=== PATIENT | female | born 1930 | race Caucasian/White ===

== ENCOUNTER 2019-08-14 12:23 | Emergency (ER) | payer MEDICARE, BC ==
--- NOTE | 2019-08-14 13:27 | CT ---
EXAMINATION: Head wo Cont SEX: Female AGE: 89 years CLINICAL HISTORY: 89-year-old female sustained head injury associated with Syncope (hit left side of head). Scan technique: Volume acquisition of data emergency unenhanced CT scan of the head and brain obtained with patient lying supine on the Siemens multislice scanner [facility]. All data archived in the PACS system for storage, reformatting axial/sagittal/coronal planes and study i.e bone/brain windows. (Some rotational/positional artifact) Interpretation: 1. Uniformly thick bony calvarium without sign of skull fracture, underlying brain contusion or abnormal extracerebral/intracranial epidural or subdural hematoma 2. Symmetric clear pneumatization of the paranasal and mastoid sinuses. 3. 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 4. No upper cervical fracture or spondylolisthesis. Normal TMJs. 5. Generalized atrophy and scattered microvascular ischemic changes periventricular white matter of both cerebral hemispheres. No edema or mass effect on the underlying cerebral sulci. 6. No supratentorial or posterior fossa mass lesion. No hydrocephalus. Physiologic pineal and choroid plexus calcifications. 7. No sign of acute intracerebral/intraventricular/subarachnoid bleed. CONCLUSION: No sign of skull fracture or acute closed head injury. No intracranial bleed. INTERPRETATION: 1. CONCLUSION:
[2019-08-14 13:28] LABS: ANION GAP 8.7 mEq/L (7-13); CHLORIDE,CL 89 mmol/L (98-107); SODIUM,NA 129 mmol/L (136-145)
--- NOTE | 2019-08-14 13:32 | CR ---
EXAMINATION: Hip Min 3V w Pelvis Lt SEX: Female AGE: 89 years CLINICAL HISTORY: 89-year-old female injured in fall (Syncope episode, hit left side of head). Hip pain. INTERPRETATION: 1. Homogeneous good bone mineral density for age and gender. 2. *Acute FRACTURES of the superior and inferior pubic rami new since CT scan images 26 February 2018. 3. Chronic arthritic changes multiple levels lower lumbar spine. Mild reactive arthritic changes both hip joints. 4. Symmetric spacing normal-appearing SI joints. No pathologic skeletal lesion, other pelvic fracture or hip dislocation. CONCLUSION: Nondisplaced left pelvic rami fractures
--- NOTE | 2019-08-14 13:37 | CT ---
EXAMINATION: Max Facial Sinus wo Cont SEX: Female AGE: 89 years ( CLINICAL HISTORY: 89-year-old female injured in a fall (syncope episode and hit left side of head. Nondisplaced left pubic rami fractures. No sign of skull fracture or closed head injury. Scan technique: Volume acquisition of data emergency unenhanced CT scan of the facial bones obtained with patient lying supine on the Siemens multi slice scanner [place], [place]. All data archived in the PACS system for storage, reformatting axial/sagittal/coronal planes and study (bone/soft tissue windows). INTERPRETATION: 1. Symmetric satisfactory dental occlusion (filling artifacts). Normal TMJs. 2. Midline nasal septum without sign of nasal or anterior maxillary spine fracture. 3. Symmetric normal-appearing orbits. No orbital or zygomatic arch fracture. Symmetric normal optic globes. 4. Symmetric clear pneumatization of the ethmoid, maxillary and sphenoid sinuses (frontal sinuses not pneumatized). 5. No foreign bodies. No facial bone fractures. 6. Chronic arthritic changes upper cervical spine. CONCLUSION: No acute facial bone fracture.
--- NOTE | 2019-08-14 13:52 | EDM.PDOC ---
Scribed by Karon Bautista 08/14/19 1242 for Ben Siegel PA ED HPI GENERAL MEDICAL PROBLEM - General Chief Complaint: Trauma Stated Complaint: AMBULANCE Time Seen by Provider: 08/14/19 12:28 Source of Information: Reports: Patient, EMS, EMS Notes Reviewed, RN, RN Notes Reviewed History Limitations: Reports: No Limitations - History of Present Illness INITIAL COMMENTS - FREE TEXT/NARRATIVE: HPI:This 89 yo female patient was brought to the ED by [facility] after falling in her house. The patient reports this morning at about 0500 she was attempting to take her medications. The patient reports she does not remember falling, but woke up on the floor. The patient reports she did not have any loss of consciousness, but does not remember the fall. The patient reports she attempted to get up off the floor, but had pain in her left hip and pelvis. The patient reports after initially attempting to get off the floor and being in pain, she has been scooting around her home. The patient reports she had 1 episode of diarrhea after the fall. Primary Survey Airway: open and patient Breathing: regular without additional effort Circulation: no major bleeding noted Deformity: no deformity noted Expose: as appropriate GCS: 15 Secondary Survey HEENT Head: The patient has abrasions and contusions to the left side of her face/ head Eyes: PERRLA Ears: no obvious trauma, canals open Nose: no deformity, no bleeding, mucosa moist Mouth: no noted trauma Throat: no abnormalities noted Neck: Subtle, normal range of motion no cervical tenderness Chest: lung sounds were clear and equal bilaterally, Heart was RRR, no murmurs, rubs or gallop Abdomen: normoactive bowel sounds, no organomegally, no tenderness on palpation Pelvis: The patient reports pain in the left hip. Increased pain with inward pressure on the pelvis. Extremities: CMS intact Provider Trauma Notes Arrival Time: 1224 GCS on Arrival: 15 C-collar present on arrival: No GCS at 1 hour: Off spine board: NA Time primary survey: 1225 Time secondary survey: 1230 Time C-collar cleared: By: Time removed: GCS on discharge: Onset: Today Onset Date: 08/14/19 Onset Time: 05:00 Duration: Constant Location: Reports: Head (left face), Lower Extremity, Left (left hip/pelvis) Quality: Reports: Ache Severity: Moderate Improves with: Reports: Rest Worsens with: Reports: Movement Context: Reports: Trauma (ground level fall) - Related Data Allergies Allergy/AdvReac Type Severity Reaction Status Date / Time No Known Allergies Allergy Verified 08/14/19 12:43 Home Meds: Home Meds Alendronate Sodium 70 mg PO WEEKLY 08/14/19 [History] Chlorthalidone 25 mg PO DAILY 08/14/19 [History] Levothyroxine Sodium [Synthroid] 72 mg PO DAILY 08/14/19 [History] amLODIPine [Norvasc] 2.5 mg PO DAILY 08/14/19 [History] Review of Systems - Review of Systems Review Of Systems: Comprehensive ROS is negative, except as noted in HPI. ED EXAM, GENERAL - Physical Exam Exam: See Below Exam Limited By: No Limitations General Appearance: Alert, WD/WN, Moderate Distress Eye Exam: Bilateral Eye: EOMI, Normal Inspection, PERRL Ears: Normal Canal, Hearing Grossly Normal, Normal TMs, Other (small amount of dried blood below the left pinna) Nose: Normal Inspection, Normal Mucosa, No Blood Throat/Mouth: Normal Inspection, Normal Lips, Normal Teeth, Normal Gums, Normal Oropharynx, Normal Voice, No Airway Compromise Head: Atraumatic, Normocephalic Neck: Normal Inspection, Supple, Non-Tender, Full Range of Motion Respiratory/Chest: No Respiratory Distress, Lungs Clear, Normal Breath Sounds, No Accessory Muscle Use, Chest Non-Tender Cardiovascular: Normal Peripheral Pulses, Regular Rate, Rhythm, No Edema, No Gallop, No JVD, No Murmur, No Rub GI/Abdominal: Normal Bowel Sounds, Soft, Non-Tender, No Organomegaly, No Distention, No Abnormal Bruit, No Mass (Female) Exam: Deferred Rectal (Female) Exam: Deferred Back Exam: Normal Inspection, Full Range of Motion, NT Extremities: Leg Pain (Left hip and pelvis tenderness to palpation ) Neurological: Alert, Oriented, CN II-XII Intact, Normal Cognition Psychiatric: Normal Affect, Normal Mood Skin Exam: Warm, Dry, Intact, Normal Color, No Rash Lymphatic: No Adenopathy Course - Orders/Labs/Meds Orders: Active Orders 24 hr Category Date Time Status EKG Documentation Completion [RC] URGENT Care 08/14/19 12:29 Active Labs: Laboratory Tests 08/14/19 08/14/19 Range/Units 12:56 12:56 WBC 7.0 (5.0-10.0) 10^3/uL RBC 4.42 (4.2-5.4) 10^6/uL Hgb 14.2 (12.0-16.0) g/dL Hct 40.1 (37.0-47.0) % MCV 90.7 (80-100) fL MCH 32.1 (27.0-34.0) pg MCHC 35.4 H (33.0-35.0) g/dL Plt Count 173 (150-450) 10^3/uL Neut % (Auto) 76.2 H (42.2-75.2) % Lymph % (Auto) 11.4 L (20.5-50.1) % [place] % (Auto) 12.3 H (2-8) % Eos % (Auto) 0.0 L (1.0-3.0) % Baso % (Auto) 0.1 (0.0-1.0) % Sodium 129 L (136-145) mmol/L Potassium 3.7 (3.5-5.1) mmol/L Chloride 89 L (98-107) mmol/L Carbon Dioxide 35 H (21-32) mmol/L Anion Gap 8.7 (7-13) mEq/L BUN 23 H (7-18) mg/dL Creatinine 0.87 (0.55-1.02) mg/dL Est Cr Clr Drug Dosing TNP Estimated GFR (MDRD) > 60 BUN/Creatinine Ratio 26.4 (No establ ref range) Glucose 132 H (74-99) mg/dL Calcium 9.2 (8.5-10.1) mg/dL Total Bilirubin 0.7 (0.2-1.0) mg/dL AST 47 H (15-37) U/L ALT 45 (14-59) U/L Alkaline Phosphatase 71 (46-116) U/L Troponin I 0.062 H* (0.000-0.056) ng/mL Total Protein 7.2 (6.4-8.2) g/dL Albumin 3.9 (3.4-5.0) g/dL Globulin 3.3 Albumin/Globulin Ratio 1.2 Departure - Departure Time of Disposition: 13:47 Disposition: DC/Tfer to Acute Hospital 02 Condition: Serious Clinical Impression: Elevated troponin I level Pubic ramus fracture Qualifiers: Encounter type: initial encounter Fracture type: closed Laterality: left Qualified Code(s): S32.592A - Other specified fracture of left pubis, initial encounter for closed fracture - Discharge Information *PRESCRIPTION DRUG MONITORING PROGRAM REVIEWED*: Not Applicable *COPY OF PRESCRIPTION DRUG MONITORING REPORT IN PATIENT LUCIANO: Not Applicable Forms: Interfacility Transfer EMTALA Care Plan Goals: Discussed the patient's history, examination, lab, EKG, CT and x-ray results with Dr. Nguyen ([facility] ED). Dr. Nguyen accepted the patient for continued evaluation and further management. The patient will be transported by [facility]. Sepsis Event Note - Focused Exam Date Exam was Performed: 08/14/19 Time Exam was Performed: 13:47 - My Orders Last 24 Hours: My Active Orders 08/14/19 12:29 EKG Documentation Completion [RC] URGENT - Assessment/Plan Last 24 Hours: My Active Orders 08/14/19 12:29 EKG Documentation Completion [RC] URGENT I have read and agree with the documentation that has been completed regarding this visit. By signing this record, I attest that the documentation was completed in my physical presence and is an accurate record of the encounter.
== END 2019-08-14 14:31 ==
LOC: DL.ED 12:23
DX: S32.592A Other specified fracture of left pubis, initial encounter for closed fracture (principal); R79.89 Other specified abnormal findings of blood chemistry; Z79.899 Other long term (current) drug therapy; W19.XXXA Unspecified fall, initial encounter; Y92.009 Unspecified place in unspecified non-institutional (private) residence as the place of occurrence of the external cause
CPT/HCPCS: 36415; 70450; 70486; 80053; 84484; 85025; 93005; 99284; 99285-25

== ENCOUNTER 2019-08-18 10:40 | Inpatient (IN) | payer MEDICARE, BC ==
[2019-08-18] MEDS ORDERED: Ondansetron 4 MG Tab.DIS PO PRN (14:14)
[2019-08-18] MEDS ORDERED: Docusate Sodium 100 MG Cap PO PRN (14:14)
--- NOTE | 2019-08-18 14:31 | PCM.HP ---
H&P History of Present Illness - General Date of Service: 08/18/19 Admit Problem/Dx: Admission Diagnosis/Problem Admission Diagnosis/Problem pubic ramus fracture Source of Information: Patient, Old Records (From [facility]) - History of Present Illness Initial Comments - Free Text/Narative: 89-year-old lady who was admitted to [facility] following a fall. She was noted to pubic thrombus fracture. She was evaluated by orthopedic surgery and conservative management with physical therapy was suggested - Related Data Allergies/Adverse Reactions: Allergies Allergy/AdvReac Type Severity Reaction Status Date / Time Penicillins Allergy Other Verified 08/18/19 10:49 Home Medications: Home Meds Alendronate Sodium 70 mg PO WEEKLY 08/14/19 [History] Levothyroxine Sodium [Synthroid] 75 mcg PO DAILY 08/14/19 [History] amLODIPine [Norvasc] 2.5 mg PO DAILY 08/14/19 [History] Past Medical History HEENT History: Reports: Cataract [employer]ER History: Reports: , Other (See Below) Other OB/BYN History: Hysterectomy Endocrine/Metabolic History: Reports: Hyperthyroidism - Past Surgical History HEENT Surgical History: Reports: Cataract Surgery Other HEENT Surgeries/Procedures: left eye Social & Family History - Family History Family Medical History: Noncontributory - Tobacco Use Smoking Status *Q: Never Smoker Second Hand Smoke Exposure: No - Caffeine Use Caffeine Use: Reports: Coffee, Tea - Recreational Drug Use Recreational Drug Use: No H&P Review of Systems - Review of Systems: Review Of Systems: See Below General: Denies: Fever Pulmonary: Denies: Shortness of Breath Cardiovascular: Denies: Chest Pain Gastrointestinal: Denies: Abdominal Pain Genitourinary: Denies: Dysuria Musculoskeletal: Reports: Other (Bilateral hip pain, worse with activity) Exam - Exam Exam: See Below - Vital Signs Vital Signs: Last Vital Signs Temp 99.1 F 08/18/19 13:20 Pulse 69 08/18/19 13:20 Resp 18 08/18/19 13:20 BP 137/76 08/18/19 13:20 Pulse Ox 100 08/18/19 13:20 Weight: 120 lb 9.6 oz - Exam General: Alert, Oriented Neck: Supple Lungs: Clear to Auscultation, Normal Respiratory Effort Cardiovascular: Regular Rate, Regular Rhythm GI/Abdominal Exam: Normal Bowel Sounds, Soft, Non-Tender Extremities: No Pedal Edema - Problem List (1) Hypertension SNOMED Code(s): 56800248 ICD Code: I10 - ESSENTIAL (PRIMARY) HYPERTENSION Status: Acute (2) Hyponatremia SNOMED Code(s): 31995077 ICD Code: E87.1 - HYPO-OSMOLALITY AND HYPONATREMIA Status: Acute (3) Hypothyroidism SNOMED Code(s): 91207741 ICD Code: E03.9 - HYPOTHYROIDISM, UNSPECIFIED Status: Acute (4) Pubic ramus fracture SNOMED Code(s): 20713710 ICD Code: S32.599A - OTH FRACTURE OF UNSP PUBIS, INIT ENCNTR FOR CLOSED FRACTURE Status: Acute Problem List Initiated/Reviewed/Updated: Yes Orders Last 24hrs: Active Orders 24 hr Category Date Time Status Patient Status [ADT] Routine ADT 08/18/19 14:14 Ordered Antiembolic Devices [RC] PER UNIT ROUTINE Care 08/18/19 14:16 Ordered Oxygen Therapy [RC] PRN Care 08/18/19 14:14 Ordered Up With Assistance [RC] ASDIRECTED Care 08/18/19 14:14 Ordered Vital Signs [RC] QSHIFT Care 08/18/19 14:14 Ordered Regular Diet [DIET] Diet 08/18/19 Dinner Ordered Acetaminophen [Tylenol] Med 08/18/19 14:24 Ordered 650 mg PO Q6H PRN Docusate Sodium [Colace] Med 08/18/19 14:14 Ordered 100 mg PO BID PRN Heparin Sodium Med 08/18/19 22:00 Ordered 5,000 units SUBCUT Q8HR Levothyroxine Med 08/19/19 09:00 Ordered 75 mcg PO DAILY Ondansetron [Zofran ODT] Med 08/18/19 14:14 Ordered 4 mg PO Q4H PRN Temazepam [Restoril] Med 08/18/19 14:14 Ordered 15 mg PO BEDTIME PRN amLODIPine [Norvasc] Med 08/19/19 09:00 Ordered 2.5 mg PO DAILY oxyCODONE Med 08/18/19 14:24 Ordered 5 mg PO Q6H PRN Antiembolic Hose [OM.PC] Per Unit Routine Oth 08/18/19 14:16 Ordered Resuscitation Status Routine Resus Stat 08/18/19 14:14 Ordered Medication Orders Acetaminophen (Tylenol) 650 mg PO Q6H PRN PRN Reason: Pain (mild) Docusate Sodium (Colace) 100 mg PO BID PRN PRN Reason: Constipation Heparin Sodium (Porcine) (Heparin Sodium) 5,000 units SUBCUT Q8HR [facility] Levothyroxine Sodium (Levothyroxine) 75 mcg PO DAILY [facility] Non-Formulary Medication (Amlodipine [Norvasc]) 2.5 mg PO DAILY [facility] Ondansetron HCl (Zofran Odt) 4 mg PO Q4H PRN PRN Reason: nausea, able to take PO Oxycodone HCl (Oxycodone) 5 mg PO Q6H PRN PRN Reason: pain (moderate to severe) Temazepam (Restoril) 15 mg PO BEDTIME PRN PRN Reason: Sleep Assessment/Plan Comment:: 89-year-old lady who presented to the emergency room after a fall. Intake the [place] ER the patient was noted to have mildly elevated troponin , pelvic fracture Was transferred to [facility] for further evaluation and treatment Left pubic rami fracture -Conservative management with PT OT was suggested We'll follow in swing bed Cardiac evaluation Appear to have good ejection fraction on echocardiogram, had normal troponin and no signs of ischemia on echo Hypothyroidism -Continue Synthroid Hypokalemia Hyponatremia -Chlorthalidone was discontinued We'll follow periodically Hypertension -Continue Norvasc DVT prophylaxis SQ heparin and mobilization
[2019-08-18] MEDS ORDERED: Temazepam 15 MG Cap PO PRN (21:00)
[2019-08-18] MEDS: Heparin Sodium 5,000 Units/ML Vial SUBCUT SCH (21:39)
[2019-08-19] MEDS: Heparin Sodium 5,000 Units/ML Vial SUBCUT SCH ×3 (05:49→21:57)
[2019-08-19] MEDS: Levothyroxine 75 MCG Tab PO SCH (07:11)
[2019-08-19] MEDS ORDERED: Levothyroxine 75 MCG Tab PO SCH ×2 (08:00→09:00)
[2019-08-19] MEDS: amLODIPine 5 MG Tab PO SCH (09:01)
[2019-08-19] MEDS: Acetaminophen 325 MG Tab PO PRN (15:38)
[2019-08-20] MEDS: Levothyroxine 75 MCG Tab PO SCH (06:10)
[2019-08-20] MEDS: Heparin Sodium 5,000 Units/ML Vial SUBCUT SCH ×3 (06:11→22:13)
[2019-08-20] MEDS: amLODIPine 5 MG Tab PO SCH (09:04)
[2019-08-20] MEDS: Acetaminophen 325 MG Tab PO PRN (10:21)
[2019-08-20] MEDS: oxyCODONE 5 MG Tab PO PRN (22:14)
[2019-08-21] MEDS: Levothyroxine 75 MCG Tab PO SCH (06:06)
[2019-08-21] MEDS: Heparin Sodium 5,000 Units/ML Vial SUBCUT SCH ×3 (06:07→22:20)
[2019-08-21] MEDS: amLODIPine 5 MG Tab PO SCH (09:10)
[2019-08-21] MEDS: oxyCODONE 5 MG Tab PO PRN ×2 (10:14→22:19)
[2019-08-22] MEDS: Heparin Sodium 5,000 Units/ML Vial SUBCUT SCH ×3 (06:08→22:08)
[2019-08-22] MEDS: Levothyroxine 75 MCG Tab PO SCH (06:12)
[2019-08-22] MEDS: Acetaminophen 325 MG Tab PO PRN (08:29)
[2019-08-22] MEDS: amLODIPine 5 MG Tab PO SCH (08:30)
[2019-08-22] MEDS: Bacitracin Oint 28.35 GM Tube TOP SCH (10:09)
--- NOTE | 2019-08-22 11:27 | PCM.PN ---
- General Info Date of Service: 08/22/19 Subjective Update: Continues to have mild to moderate pelvic pain associated with activity. The resolving with rest. Has been working with physical and occupational therapy. No associated fever. Had urinary urgency and foul-smelling urine but denies associated urinary burning. Functional Status: Reports: Pain Controlled, Tolerating Diet - Review of Systems General: Denies: Fever Pulmonary: Denies: Shortness of Breath Cardiovascular: Denies: Chest Pain, Edema Neurological: Denies: Dizziness Psychiatric: Denies: Confusion - Patient Data Vitals - Most Recent: Last Vital Signs Temp 98.6 F 08/22/19 07:33 Pulse 65 08/22/19 07:33 Resp 18 08/22/19 07:33 BP 130/61 08/22/19 08:30 Pulse Ox 100 08/22/19 07:33 Weight - Most Recent: 120 lb 9.6 oz I&O - Last 24 Hours: Intake & Output 08/21/19 08/22/19 08/22/19 22:59 06:59 14:59 Intake Total 300 160 Output Total 100 Balance 300 60 Med Orders - Current: Current Medications Acetaminophen (Tylenol) 650 mg PO Q6H PRN PRN Reason: Pain (mild 1-3) Last Admin: 08/22/19 08:29 Dose: 650 mg Amlodipine Besylate (Norvasc) 2.5 mg PO DAILY [facility] Last Admin: 08/22/19 08:30 Dose: 2.5 mg Bacitracin (Bacitracin Oint) 0 gm TOP DAILY [facility] Last Admin: 08/22/19 10:09 Dose: 1 applic Docusate Sodium (Colace) 100 mg PO BID PRN PRN Reason: Constipation Heparin Sodium (Porcine) (Heparin Sodium) 5,000 units SUBCUT Q8HR [facility] Last Admin: 08/22/19 06:08 Dose: 5,000 units Levothyroxine Sodium (Levothyroxine) 37.5 mcg PO Q48H [facility] Last Admin: 08/22/19 06:12 Dose: 37.5 mcg Levothyroxine Sodium (Levothyroxine) 75 mcg PO Q48H [facility] Last Admin: 08/21/19 06:06 Dose: 75 mcg Ondansetron HCl (Zofran Odt) 4 mg PO Q4H PRN PRN Reason: nausea, able to take PO Oxycodone HCl (Oxycodone) 5 mg PO Q6H PRN PRN Reason: pain (moderate to severe) Last Admin: 08/21/19 22:19 Dose: 5 mg Temazepam (Restoril) 15 mg PO BEDTIME PRN PRN Reason: Sleep Discontinued Medications Levothyroxine Sodium (Levothyroxine) 75 mcg PO DAILY [facility] Levothyroxine Sodium (Levothyroxine) 75 mcg PO Q48H [facility] Last Admin: 08/19/19 06:19 Dose: 75 mcg - Exam General: Alert, Oriented Neck: Supple Lungs: Clear to Auscultation, Normal Respiratory Effort Cardiovascular: Regular Rate, Regular Rhythm, Murmurs GI/Abdominal Exam: Normal Bowel Sounds, Soft, Non-Tender Extremities: No Pedal Edema Sepsis Event Note - Evaluation Sepsis Screening Result: No Definite Risk - Focused Exam Vital Signs: Vital Signs Temp Pulse Resp BP BP Pulse Ox 08/22/19 08:30 130/61 08/22/19 07:33 98.6 F 65 18 130/61 100 Date Exam was Performed: 08/22/19 Time Exam was Performed: 11:25 - Problem List & Annotations (1) Hypertension SNOMED Code(s): 15656705 Code(s): I10 - ESSENTIAL (PRIMARY) HYPERTENSION Status: Acute Current Visit: No (2) Hyponatremia SNOMED Code(s): 01318512 Code(s): E87.1 - HYPO-OSMOLALITY AND HYPONATREMIA Status: Acute Current Visit: No (3) Hypothyroidism SNOMED Code(s): 49836362 Code(s): E03.9 - HYPOTHYROIDISM, UNSPECIFIED Status: Acute Current Visit : No (4) Pubic ramus fracture SNOMED Code(s): 17083710 Code(s): S32.599A - OTH FRACTURE OF UNSP PUBIS, INIT ENCNTR FOR CLOSED FRACTURE Status: Acute Current Visit: No - Problem List Review Problem List Initiated/Reviewed/Updated: Yes - My Orders Last 24 Hours: My Active Orders 08/22/19 10:00 Bacitracin [Bacitracin Oint] 0 gm TOP DAILY 08/22/19 11:00 CULTURE URINE [RM] Routine 08/22/19 11:24 BASIC METABOLIC PANEL,BMP [CHEM] Routine CBC WITH AUTO DIFF [HEME] Routine UA W/MICROSCOPIC [URIN] Routine - Plan Plan:: 89-year-old lady who presented to the emergency room after a fall. Intake the [place] ER the patient was noted to have mildly elevated troponin , pelvic fracture Was transferred to [facility] for further evaluation and treatment Left pubic rami fracture -Conservative management with PT OT Cardiac evaluation Appear to have good ejection fraction on echocardiogram, had normal troponin and no signs of ischemia on echo Hypothyroidism -Continue Synthroid Hypokalemia Hyponatremia -Chlorthalidone was discontinued We'll recheck electrolytes today Hypertension -Continue Norvasc DVT prophylaxis SQ heparin and mobilization
[2019-08-22 12:34] LABS: ANION GAP 13.8 mEq/L (7-13); CHLORIDE,CL 98 mmol/L (98-107); SODIUM,NA 132 mmol/L (136-145)
[2019-08-22] MEDS: Ciprofloxacin 500 MG Tab PO SCH ×2 (15:02→22:08)
[2019-08-23] MEDS: Heparin Sodium 5,000 Units/ML Vial SUBCUT SCH ×3 (05:39→21:30)
[2019-08-23] MEDS: Levothyroxine 75 MCG Tab PO SCH (05:59)
[2019-08-23] MEDS: amLODIPine 5 MG Tab PO SCH (09:18)
[2019-08-23] MEDS: Ciprofloxacin 500 MG Tab PO SCH ×2 (09:19→21:31)
[2019-08-23] MEDS: Bacitracin Oint 28.35 GM Tube TOP SCH (09:20)
[2019-08-24] MEDS: Levothyroxine 75 MCG Tab PO SCH (05:42)
[2019-08-24] MEDS: Heparin Sodium 5,000 Units/ML Vial SUBCUT SCH ×3 (05:42→21:20)
[2019-08-24] MEDS: Acetaminophen 325 MG Tab PO PRN (08:09)
[2019-08-24] MEDS: amLODIPine 5 MG Tab PO SCH (08:09)
[2019-08-24] MEDS: Ciprofloxacin 500 MG Tab PO SCH ×2 (08:10→21:20)
[2019-08-24] MEDS: Bacitracin Oint 28.35 GM Tube TOP SCH (08:11)
[2019-08-25] MEDS: Heparin Sodium 5,000 Units/ML Vial SUBCUT SCH ×3 (05:56→21:50)
[2019-08-25] MEDS: Levothyroxine 75 MCG Tab PO SCH (05:56)
[2019-08-25] MEDS: amLODIPine 5 MG Tab PO SCH (08:43)
[2019-08-25] MEDS: Ciprofloxacin 500 MG Tab PO SCH ×2 (08:44→20:13)
[2019-08-25] MEDS: Bacitracin Oint 28.35 GM Tube TOP SCH (08:45)
[2019-08-26] MEDS: Levothyroxine 75 MCG Tab PO SCH (06:00)
[2019-08-26] MEDS: Heparin Sodium 5,000 Units/ML Vial SUBCUT SCH ×3 (06:00→21:26)
[2019-08-26] MEDS: Ciprofloxacin 500 MG Tab PO SCH ×2 (08:33→21:25)
[2019-08-26] MEDS: amLODIPine 5 MG Tab PO SCH (08:33)
[2019-08-26] MEDS: Bacitracin Oint 28.35 GM Tube TOP SCH (08:35)
[2019-08-27] MEDS: Levothyroxine 75 MCG Tab PO SCH (05:44)
[2019-08-27] MEDS: Heparin Sodium 5,000 Units/ML Vial SUBCUT SCH ×3 (05:46→22:31)
[2019-08-27] MEDS: amLODIPine 5 MG Tab PO SCH (09:23)
[2019-08-27] MEDS: Ciprofloxacin 500 MG Tab PO SCH (09:23)
[2019-08-27] MEDS: Bacitracin Oint 28.35 GM Tube TOP SCH (09:24)
[2019-08-28] MEDS: Heparin Sodium 5,000 Units/ML Vial SUBCUT SCH ×3 (06:38→21:40)
[2019-08-28] MEDS: Levothyroxine 75 MCG Tab PO SCH (06:39)
[2019-08-28] MEDS: amLODIPine 5 MG Tab PO SCH (08:38)
[2019-08-28] MEDS: Bacitracin Oint 28.35 GM Tube TOP SCH (08:41)
[2019-08-29] MEDS: Heparin Sodium 5,000 Units/ML Vial SUBCUT SCH ×3 (05:32→21:27)
[2019-08-29] MEDS: Levothyroxine 75 MCG Tab PO SCH (05:36)
[2019-08-29] MEDS: Bacitracin Oint 28.35 GM Tube TOP SCH (08:26)
[2019-08-29] MEDS: amLODIPine 5 MG Tab PO SCH (08:26)
--- NOTE | 2019-08-29 11:45 | PCM.PN ---
- General Info Date of Service: 08/29/19 Admission Dx/Problem (Free Text): Admission Diagnosis/Problem Admission Diagnosis/Problem pubic ramus fracture Subjective Update: 89-year-old lady admitted to swing bed for pelvic fracture following a fall. She was admitted to continue PT/OT. Patient is seen today. Doing well. Has no complaint. Tolerating PT/OT. She denies fever, chills, chest pain, shortness of breath. Appetite is okay. Functional Status: Reports: Pain Controlled - Review of Systems General: Reports: No Symptoms HEENT: Reports: No Symptoms Pulmonary: Reports: No Symptoms Cardiovascular: Reports: No Symptoms Gastrointestinal: Reports: No Symptoms Genitourinary: Reports: No Symptoms Musculoskeletal: Reports: No Symptoms Skin: Reports: No Symptoms Neurological: Reports: No Symptoms Psychiatric: Reports: No Symptoms - Patient Data Vitals - Most Recent: Last Vital Signs Temp 98.1 F 08/29/19 08:00 Pulse 81 08/29/19 08:00 Resp 16 08/29/19 08:00 BP 141/76 H 08/29/19 08:26 Pulse Ox 98 08/29/19 08:00 Weight - Most Recent: 116 lb 2 oz I&O - Last 24 Hours: Intake & Output 08/28/19 08/29/19 08/29/19 22:59 06:59 14:59 Intake Total 1000 200 Balance 1000 200 Med Orders - Current: Current Medications Acetaminophen (Tylenol) 650 mg PO Q6H PRN PRN Reason: Pain (mild 1-3) Last Admin: 08/24/19 08:09 Dose: 650 mg Amlodipine Besylate (Norvasc) 2.5 mg PO DAILY [facility] Last Admin: 08/29/19 08:26 Dose: 2.5 mg Bacitracin (Bacitracin Oint) 0 gm TOP DAILY [facility] Last Admin: 08/29/19 08:26 Dose: 1 applic Docusate Sodium (Colace) 100 mg PO BID PRN PRN Reason: Constipation Last Admin: 08/23/19 09:19 Dose: 100 mg Heparin Sodium (Porcine) (Heparin Sodium) 5,000 units SUBCUT Q8HR [facility] Last Admin: 08/29/19 05:32 Dose: Not Given Levothyroxine Sodium (Levothyroxine) 37.5 mcg PO Q48H [facility] Last Admin: 08/28/19 06:39 Dose: 37.5 mcg Levothyroxine Sodium (Levothyroxine) 75 mcg PO Q48H [facility] Last Admin: 08/29/19 05:36 Dose: 75 mcg Ondansetron HCl (Zofran Odt) 4 mg PO Q4H PRN PRN Reason: nausea, able to take PO Oxycodone HCl (Oxycodone) 5 mg PO Q6H PRN PRN Reason: pain (moderate to severe) Last Admin: 08/21/19 22:19 Dose: 5 mg Temazepam (Restoril) 15 mg PO BEDTIME PRN PRN Reason: Sleep Discontinued Medications Ciprofloxacin (Ciprofloxacin Hcl) 250 mg PO BID [facility] Stop: 08/27/19 13:01 Last Admin: 08/27/19 09:23 Dose: 250 mg Levothyroxine Sodium (Levothyroxine) 75 mcg PO DAILY [facility] Levothyroxine Sodium (Levothyroxine) 75 mcg PO Q48H [facility] Last Admin: 08/19/19 06:19 Dose: 75 mcg - Exam Quality Assessment: DVT Prophylaxis General: Alert, Oriented HEENT: Pupils Equal, Pupils Reactive, EOMI, Mucous Membr. Moist/[place] Neck: Supple Lungs: Clear to Auscultation, Normal Respiratory Effort Cardiovascular: Regular Rate, Regular Rhythm GI/Abdominal Exam: Normal Bowel Sounds, Soft, Non-Tender, No Organomegaly, No Distention, No Abnormal Bruit, No Mass, Pelvis Stable (Female) Exam: Normal External Exam, Normal Speculum Exam, Normal Bimanual Exam Back Exam: Normal Inspection, Full Range of Motion Extremities: Normal Inspection, Normal Range of Motion, Non-Tender, No Pedal Edema, Normal Capillary Refill Skin: Warm, Dry, Intact Wound/Incisions: Healing Well Neurological: No New Focal Deficit Psy/Mental Status: Alert, Normal Affect, Normal Mood Sepsis Event Note - Evaluation Sepsis Screening Result: No Definite Risk - Focused Exam Vital Signs: Vital Signs Temp Pulse Resp BP BP Pulse Ox 08/29/19 08:26 141/76 H 08/29/19 08:00 98.1 F 81 16 141/76 H 98 Date Exam was Performed: 08/29/19 Time Exam was Performed: 11:45 - Problem List Review Problem List Initiated/Reviewed/Updated: Yes - Plan Plan:: Left pubic rami fracture -Conservative management with PT OT Cardiac evaluation Appear to have good ejection fraction on echocardiogram, had normal troponin and no signs of ischemia on echo Hypothyroidism -Continue Synthroid Hyponatremia -Chlorthalidone was discontinued Will recheck electrolytes today Hypertension -Continue Norvasc DVT prophylaxis SQ heparin and mobilization
[2019-08-29 12:52] LABS: ANION GAP 16.1 mEq/L (7-13)
[2019-08-30] MEDS: Heparin Sodium 5,000 Units/ML Vial SUBCUT SCH ×3 (05:21→21:49)
[2019-08-30] MEDS: Levothyroxine 75 MCG Tab PO SCH (05:29)
[2019-08-30] MEDS: amLODIPine 5 MG Tab PO SCH (09:20)
[2019-08-30] MEDS: Bacitracin Oint 28.35 GM Tube TOP SCH (09:29)
[2019-08-31] MEDS: Heparin Sodium 5,000 Units/ML Vial SUBCUT SCH ×2 (06:12→14:29)
[2019-08-31] MEDS: Levothyroxine 75 MCG Tab PO SCH (06:12)
[2019-08-31] MEDS: amLODIPine 5 MG Tab PO SCH (08:44)
[2019-08-31] MEDS: Bacitracin Oint 28.35 GM Tube TOP SCH (08:46)
--- NOTE | 2019-08-31 10:31 | PCM.DCSUM1 ---
Discharge Summary - Hospital Course Free Text/Narrative:: The patient fell and sustained pelvic fracture. She was transferred to swing bed for physical and occupational therapy Left pubic rami fracture Cardiac evaluation Appear to have good ejection fraction on echocardiogram, had normal troponin and no signs of ischemia on echo Hypothyroidism -Continue Synthroid Hyponatremia Improved Hypertension -Continue Norvasc Patient will be discharged with home healthcare for the following reasons: Patient requires skilled for nursing medication regimen instructions and home health aide for bathing. Physical therapy for home exercise instructions. She also requires occupational therapy for home safety evaluation and improvement instructions - Discharge Data Discharge Date: 08/31/19 Discharge Disposition: Home, Self-Care 01 Condition: Good - Referral to Home Health Primary Care Physician: Robson Sanabria MD - Patient Summary/Data Consults: Consultations 08/18/19 16:33 PT Evaluation and Treatment [CONS] Routine 08/18/19 16:34 OT Evaluation and Treatment [CONS] Routine - Patient Instructions Other/Special Instructions: F/up with PMD in one week - Discharge Plan Home Medications: Home Meds Alendronate Sodium 70 mg PO .Sundays08/14/19 [History] Levothyroxine Sodium [Synthroid] 75 mcg PO .EVERYOTHER08/14/19 [History] amLODIPine [Norvasc] 2.5 mg PO DAILY 08/14/19 [History] Levothyroxine Sodium [Synthroid] 37.5 mcg PO .EVERYOTHERDAY 08/18/19 [History] Referrals: Hugo Sanabria MD [Primary Care Provider] - - Discharge Summary/Plan Comment DC Time >30 min.: No - General Info Date of Service: 08/31/19 Subjective Update: Patient has no new complaint today Indicates that she is feeling better - Patient Data Vitals - Most Recent: Last Vital Signs Temp 36.7 C 08/31/19 08:05 Pulse 76 08/31/19 08:05 Resp 20 08/31/19 08:05 BP 156/81 H 08/31/19 08:44 Pulse Ox 99 08/31/19 08:05 Weight - Most Recent: 53.161 kg I&O - Last 24 hours: Intake & Output 08/30/19 08/31/19 08/31/19 22:59 06:59 14:59 Intake Total 380 500 320 Balance 380 500 320 Med Orders - Current: Current Medications Acetaminophen (Tylenol) 650 mg PO Q6H PRN PRN Reason: Pain (mild 1-3) Last Admin: 08/24/19 08:09 Dose: 650 mg Amlodipine Besylate (Norvasc) 2.5 mg PO DAILY [facility] Last Admin: 08/31/19 08:44 Dose: 2.5 mg Bacitracin (Bacitracin Oint) 0 gm TOP DAILY [facility] Last Admin: 08/31/19 08:46 Dose: Not Given Docusate Sodium (Colace) 100 mg PO BID PRN PRN Reason: Constipation Last Admin: 08/23/19 09:19 Dose: 100 mg Heparin Sodium (Porcine) (Heparin Sodium) 5,000 units SUBCUT Q8HR [facility] Last Admin: 08/31/19 06:12 Dose: Not Given Levothyroxine Sodium (Levothyroxine) 37.5 mcg PO Q48H [facility] Last Admin: 08/30/19 05:29 Dose: 37.5 mcg Levothyroxine Sodium (Levothyroxine) 75 mcg PO Q48H [facility] Last Admin: 08/31/19 06:12 Dose: 75 mcg Ondansetron HCl (Zofran Odt) 4 mg PO Q4H PRN PRN Reason: nausea, able to take PO Oxycodone HCl (Oxycodone) 5 mg PO Q6H PRN PRN Reason: pain (moderate to severe) Last Admin: 08/21/19 22:19 Dose: 5 mg Temazepam (Restoril) 15 mg PO BEDTIME PRN PRN Reason: Sleep Discontinued Medications Ciprofloxacin (Ciprofloxacin Hcl) 250 mg PO BID [facility] Stop: 08/27/19 13:01 Last Admin: 08/27/19 09:23 Dose: 250 mg Levothyroxine Sodium (Levothyroxine) 75 mcg PO DAILY [facility] Levothyroxine Sodium (Levothyroxine) 75 mcg PO Q48H [facility] Last Admin: 08/19/19 06:19 Dose: 75 mcg - Exam General: Reports: Alert, Oriented Neck: Reports: Supple Lungs: Reports: Clear to Auscultation, Normal Respiratory Effort GI/Abdominal Exam: Normal Bowel Sounds, Soft, Non-Tender, No Organomegaly, No Distention, No Abnormal Bruit, No Mass, Pelvis Stable Extremities: Normal Inspection, Normal Range of Motion, Non-Tender, No Pedal Edema, Normal Capillary Refill
== END 2019-08-31 14:25 | disposition home or self-care (01) | DRG 560 ==
LOC: DL.MS 14:14
PROVIDERS: ADMIT Internal Medicine; ATTEND Hospitalist
DX: S32.592D Other specified fracture of left pubis, subsequent encounter for fracture with routine healing (principal); E87.1 Hypo-osmolality and hyponatremia; L60.0 Ingrowing nail; L97.519 Non-pressure chronic ulcer of other part of right foot with unspecified severity; E03.9 Hypothyroidism, unspecified; I10 Essential (primary) hypertension; Z79.890 Hormone replacement therapy; Z79.899 Other long term (current) drug therapy; Z90.710 Acquired absence of both cervix and uterus; Z28.82 Immunization not carried out because of caregiver refusal
CPT/HCPCS: 36415; 80048; 81001; 85025; 87086; 87088; 87186; 97110-GO; 97110-GP; 97116-GP; 97162-GP; 97165-GO; 97530-GO; 97535-GO; A9270-GY; J1644